=== PATIENT | male | born 1945 ===

== ENCOUNTER 2021-04-14 15:21 | Outpatient (CLI) | payer MEDICARE | END 2021-04-14 15:22 | disposition home or self-care (01) | LOC: CSHRAD 15:21 | PROVIDERS: ATTEND Orthopaedic Surgery | DX: M54.50 Low back pain, unspecified (principal); M54.16 Radiculopathy, lumbar region; M47.816 Spondylosis without myelopathy or radiculopathy, lumbar region; Z98.890 Other specified postprocedural states; I70.90 Unspecified atherosclerosis | CPT/HCPCS: 72100 ==